=== PATIENT | female | born 1985 | race African-American/Black ===

== ENCOUNTER 2018-11-26 13:09 | Emergency (ER) | payer OTHER ==
[2018-11-26] MEDS ORDERED: SODIUM CHLORIDE 1,000 ML IV STA (13:19)
--- NOTE | 2018-11-26 13:19 | PDOC ---
Rapid Medical Evaluation Time Seen by Provider: 11/26/18 13:17 Medical Evaluation: Allergies Allergy/AdvReac Type Severity Reaction Status Date / Time No Known Allergies Allergy Verified 05/10/15 12:53 11/26/18 13:18 I have performed a brief in-person evaluation of this patient. The patient presents with a chief complaint of: dizziness x today with upper abdominal pain x2 days Pertinent physical exam findings: HR- 120, BP-150/102, epigastric tenderness. I have ordered the following: cardiac w/u The patient will proceed to the ED for further evaluation. Discharge Disposition - Diagnosis Dizziness - Referrals - Patient Instructions - Post Discharge Activity
[2018-11-26 13:20] VITALS: TEMP 98.8; BMI 29.2
--- NOTE | 2018-11-26 14:03 | PDOC ---
History of Present Illness - General Chief Complaint: Blood Pressure Problem Stated Complaint: HIGH BLOOD PRESSURE Time Seen by Provider: 11/26/18 13:17 - History of Present Illness Initial Comments: 11/26/18 16:38 33yo F w/no pertinent medical hx presents from home c/o 2 days of epigastric pain, nausea, and vomiting. 2 days ago pt began to experience epigastric pain, intermittent, gradual onset, cramping, nonradiating, unchanged by eating, slight improvement with mylanta and burping. Pt tried Mylanta 1tbsp every 4 hours for 2 days (6x/day) as well as Aleve once yesterday, with minimal temporary improvement. Last Mylanta a few hours ago. Pt was worried she had an infxn so she also tried Penicillin that came from [facility] 2 times, 500mg last night and 500mg this AM, with no improvement. Endorses nausea, decreased appetite (but still ate peanut butter and crackers today), NBNB emesis x1 last night, dysuria, urgency, increased frequency, dizziness, sweating, and increased BP from her usual 120/84 up to 130/110s. Denies hx of GERD, spicy or different foods, hx of similar sx, recent travel, sick contacts, CP, SOB, D/C, blood in stool, vaginal bleeding or discharge, numbness/tingling, weakness. Past History - Past Medical History Allergies/Adverse Reactions: Allergies Allergy/AdvReac Type Severity Reaction Status Date / Time No Known Allergies Allergy Verified 11/26/18 13:20 Home Medications: Ambulatory Orders Fluconazole [Diflucan -] 150 mg PO ONCE #1 tablet 05/10/15 Naproxen [EC-Naprosyn] 500 mg PO BID PRN #14 tablet.ec 05/10/15 Nitrofurantoin Monohyd/M-Cryst [Macrobid -] 100 mg PO BID #14 capsule 05/10/15 COPD: No - Suicide/Smoking/Psychosocial Hx Smoking Status: No Smoking History: Never smoked Have you smoked in the past 12 months: No Number of Cigarettes Smoked Daily: 0 Information on smoking cessation initiated: No Hx Alcohol Use: No Drug/Substance Use Hx: No Review of Systems - Review of Systems Comments:: 11/26/18 18:43 Constitutional: Negative for chills, fever, fatigue. HENT: Negative for sore throat, rhinorrhea, congestion. Eyes: Negative for visual disturbance. Respiratory: Negative for shortness of breath, cough, and wheezing. Cardiovascular: Negative for chest pain, palpitations, and leg swelling. Gastrointestinal: Positive for epigastric pain, nausea, and vomiting. Negative for blood in stool, constipation, diarrhea. Genitourinary: Positive for dysuria, frequency, urgency. Negative for vaginal discharge, vaginal odor, flank pain, and hematuria. Musculoskeletal: Negative for myalgias, back pain, and neck pain. Skin: Negative for rash. Neurological: Positive for dizziness. Negative for light-headedness, syncope, weakness, numbness and headaches. Psychiatric/Behavioral: Negative for behavioral problems and confusion. *Physical Exam - Vital Signs Last Vital Signs Temp Pulse Resp BP Pulse Ox 98.8 F 124 H 19 150/102 H 100 11/26/18 13:18 11/26/18 13:18 11/26/18 13:18 11/26/18 13:18 11/26/18 13:18 - Physical Exam Comments: 11/26/18 18:45 Gen: Alert, NAD, comfortable-appearing, sighs with exhalation HEENT: PERRL, EOMI, MMM, NCAT. No conjunctival pallor. Sclera are non-icteric. Oropharynx is clear. CV: Regular rate and rhythm. No murmurs, rubs, or gallops. PULM: No resp distress. CTAB, no wheezes, rales, or rhonchi. ABD: TTP epigastric, soft, ND, no rebound tenderness or guarding, no CVA tenderness. BACK: No TTP of c/t/l-spine. No step-offs or deformities. MSK: No bony deformities. 2+ pulses in all extremities. NEURO: AAOx3. PERRL. No gross CN deficits. Strength and sensation grossly intact throughout. EXTREMITIES: No cyanosis. No clubbing. No edema. No calf tenderness. PSYCH: Normal mood and thought pattern. SKIN: Warm and dry. Normal capillary refill. No rashes. No jaundice. Heart Score/ECG Review - ECG Impressions Comment:: 11/26/18 18:46 Sinus tachycardia, 111bpm, normal axis, no KITTY/TWI ED Treatment Course - LABORATORY CBC & Chemistry Diagram: 11/26/18 13:50 11/26/18 13:50 Medical Decision Making - Medical Decision Making 11/26/18 16:55 33yo F w/no pertinent medical hx presents from home c/o 2 days of epigastric pain, nausea, vomiting, and dysuria. Localized epigastric pain and improvement with Mylanta makes GERD most likely - tx with GI cocktail, IVF, and reassess. Other GI etiologies such as pancreatitis and cholecystitis less likely due to location of pain, but also consider and r/o with labs. Very low concern for ACS/ VT, low HEART score, r/o with EKG and trop x1. Lung pathology such as PNA also unlikely - r/o with CXR. Urinary sx concerning for UTI or STI, less likely renal stones - assess with UA/UC and STI tests. Denies hx of GERD, spicy or different foods, hx of similar sx, recent travel, sick contacts, CP, SOB, D/C, blood in stool, vaginal bleeding or discharge, numbness/tingling, weakness. -EKG -CBC, CMP, Cardiac profile, Lipase, Mg, beta-hCG, PT/INR, UA/UC -CXR -1L IVF -Pepcid, Maalox, Zofran -Dispo: pending workup 11/26/18 16:56 Pain improved s/p IVF, pepcid, and maalox. Still c/o urinary frequency and dysuria. Labs reviewed. CXR negative for acute pathology. WBC 8.0, no concerning values on CBC, CMP, lipase, cardiac profile. HCG neg. EKG reviewed. 11/26/18 17:25 Pt states she feels much better and the pain went away. No TTP epigastric or abdominal. Urine negative. Pending STI tests. Informed that would be called with results of STI tests. Set up call for Friday. 11/26/18 17:51 HR 72bpm. Vitals reviewed. Will dc home with supportive treatment. Return precautions given. Pt. understands all dc instructions and all questions were answered. *DC/Admit/Observation/Transfer Diagnosis at time of Disposition: Epigastric abdominal pain - Discharge Dispostion Disposition: HOME Condition at time of disposition: Improved Decision to Admit order: No - Referrals Referrals: [facility] [place] [Provider Group] Chato Medeiros MD [Staff Physician] - - Patient Instructions Printed Discharge Instructions: DI for Gastroesophageal Reflux Disease (GERD) Additional Instructions: You have been seen in the Emergency Department for abdominal pain and increased urination. Your physical exam and labs show no signs concerning for an emergent condition. Your urine shows no signs of urinary infection. Your blood pressure, heart rate, and pain improved with hydration and acid reflux medications. You most likely have acid reflux. At this time, it's most important to stay hydrated. Take Maalox and Pepcid (over the counter medications) as needed for your reflux - take as directed on bottles. You can also take Tylenol for pain - use as directed on bottle (do not exceed 4g per day). Avoid NSAIDs including ibuprofen, advil, motrin, and aleve. Your STD tests will take a few days to result. You will receive a call with any abnormal results. We have given you referrals for a primary care doctor and a vortex operator ( GI doctor) Dr. Medeiros. Call them tomorrow and set up appointments for follow-up in the next week. Return to the ED immediately if you experience pain not controlled by over the counter medications, dizziness, blood in stool, severe vomiting, or any other new or worsening symptom. - Post Discharge Activity
[2018-11-26 14:30] LABS: BASO % 0.5 % (0-2.0); EOS % 0.1 % (0-4.5); HEMATOCRIT 34.8 % (32.4-45.2); HEMOGLOBIN 11.7 GM/dL (10.7-15.3); LYMPH % 18.6 % (8-40); MCH 29.3 pg (25.7-33.7); MCHC 33.6 g/dl (32.0-36.0); MEAN CELL VOLUME 87.2 fl (80-96); MONO % 4.1 % (3.8-10.2); NEUT % 76.7 % (42.8-82.8); PLATELET COUNT 221 K/MM3 (134-434); RBC 3.99 M/mm3 (3.60-5.2); RDW 12.5 % (11.6-15.6)
[2018-11-26 14:40] LABS: INR 1.21 (0.83-1.09); PROTHROMBIN TIME (PATIENT) 14.3 SEC (9.7-13.0)
[2018-11-26] MEDS ORDERED: FAMOTIDINE 20 MG/50 ML IVPB 20 MG/50 ML MG IVPB ONE ×2 (14:51→15:19)
[2018-11-26] MEDS ORDERED: MAG HYDROX/AL HYDROX/SIMETH 30 ML UNIT-DOSE CUP PO ONE (14:52)
[2018-11-26 15:03] LABS: ALBUMIN 3.7 g/dl (3.4-5.0); ALK PHOS 61 U/L (45-117); ANION GAP 6 MMOL/L (8-16); BILIRUBIN,TOTAL 0.3 mg/dL (0.2-1); BLOOD UREA NITROGEN 28.4 mg/dL (7-18); CALCIUM 9.1 mg/dL (8.5-10.1); CHLORIDE 108 mmol/L (98-107); CO2 24 mmol/L (21-32); CREATININE 0.8 mg/dL (0.55-1.3); GLUCOSE,RANDOM 124 mg/dL (74-106); LIPASE 191 U/L (73-393); MAGNESIUM 2.1 mg/dL (1.8-2.4); POTASSIUM 4.5 mmol/L (3.5-5.1); SGOT/AST 9 U/L (15-37); SGPT/ALT 23 U/L (13-61); SODIUM 138 mmol/L (136-145); TOT PROT 7.8 g/dl (6.4-8.2)
[2018-11-26] MEDS ORDERED: MAG HYDROX/AL HYDROX/SIMETH 30 ML UNIT-DOSE CUP ONE ×2 (15:05→15:19)
[2018-11-26] MEDS ORDERED: ONDANSETRON 4 MG TABLET PO PRN (16:56)
--- NOTE | 2018-11-26 17:01 | EKG ---
Test Reason : Blood Pressure : / mmHG Vent. Rate : 111 BPM Atrial Rate : 111 BPM P-R Int : 128 ms QRS Dur : 066 ms QT Int : 322 ms P-R-T Axes : 057 033 031 degrees QTc Int : 437 ms SINUS TACHYCARDIA OTHERWISE NORMAL ECG NO PREVIOUS ECGS AVAILABLE Confirmed by DEVORA WEST MD ([id number]) on 11/26/2018 5:01:36 PM Referred By: Confirmed By:DEVORA WEST MD
[2018-11-26 17:03] LABS: URINE APPEARANCE CLEAR; URINE BILIRUBIN NEGATIVE (NEGATIVE); URINE COLOR YELLOW; URINE GLUCOSE (UA) NEGATIVE (NEGATIVE); URINE KETONE NEGATIVE (NEGATIVE); URINE LEUK ESTERASE NEGATIVE (NEGATIVE); URINE NITRITE NEGATIVE (NEGATIVE); URINE PROTEIN NEGATIVE (NEGATIVE); URINE UROBILINOGEN 0.2 mg/dL (0.2-1.0)
[2018-11-26 17:32] VITALS: BP 134/69; PULSE 98
--- NOTE | 2018-11-26 18:18 | PDOC ---
Documentation entered by Garry Gonzalez SCRIBE, acting as scribe for Juan Kilgore MD. Juan Kilgore MD: This documentation has been prepared by the Lisa ibarra Elijah, SCRIBE, under my direction and personally reviewed by me in its entirety. I confirm that the documentation accurately reflects all work, treatment, procedures, and medical decision making performed by me. Attending Attestation - Resident Resident Name: Holley Coffman - ED Attending Attestation I have performed the following: I have examined & evaluated the patient, The case was reviewed & discussed with the resident, I agree w/resident's findings & plan, Exceptions are as noted - HPI HPI: 11/26/18 18:04 33yo F with no significant PMH presents to the ED with 2 days epigastric pain a/ w nausea and NBNB emesis x 1 last night. Reports pain is intermittent and crampy in nature and improves with burping and mylanta. She also reports trying aleve and motrin which she states makes the pain worse. Denies dark or bloody stools. Reports her appetite has been poor due to the nausea. States the pain feels like acid stick in her epigastric area. Denies hx similar sxs. Denies CP, SOB, fevers, cough, N/V/D, abd pain, LE edema , headache, dizziness, focal weakness/numbness. - Physicial Exam PE: 11/26/18 18:09 GENERAL: Awake, alert, and fully oriented, in no acute distress. Well appearing on the phone HEAD: No signs of trauma EYES: PERRLA, EOMI, sclera anicteric, conjunctiva clear ENT: Nares patent, oropharynx clear without exudates. Moist mucosa NECK: Normal ROM, supple, no lymphadenopathy, JVD, or masses LUNGS: Breath sounds equal, clear to auscultation bilaterally. No wheezes, and no crackles HEART: Regular rate and rhythm, normal S1 and S2, no murmurs, rubs or gallops ABDOMEN: Soft, nontender, normoactive bowel sounds. No guarding, no rebound. No masses. No CvAT. EXTREMITIES: Normal range of motion, no edema. No clubbing or cyanosis. No cords , erythema, or tenderness BACK: No midline spinal tenderness in cervical/thoracic/lumbar region NEUROLOGICAL: Normal speech, cranial nerves intact, 5/5 strength in all 4 extremities, normal sensation to light touch in all 4 extremities, normal cerebellar exam, normal gait, normal tone SKIN: Warm, Dry, normal turgor, no rashes or lesions noted. - Medical Decision Making 11/26/18 18:12 33yo F, healthy, presents to the ED with 2 days of epigastric pain a/w nausea and vomiting Symptoms most consistent with gerd/gastritis, however bloodwork was checked to evaluate for pancreatitis, cardiac cause which was neg EKG non ischemic Pt states symptoms resolved with Maalox and pepcid. She is tolerating PO All results discussed with pt. She states her PMD left and she does not have one Will refer to primary care and GI Also encouraged pt to avoid NSAIDs as they are likely to exacerbate her symptoms Rpt vitals with improved BP and HR - initially she was hypertensive and tachycardic (pt was likely mildly dehydrated and states she was anxious when she came in) She expresses understanding of plan and she is clinically stable for DC home I discussed the physical exam findings, ancillary test results and final diagnoses with the patient. I answered all of the patient's questions. The patient was satisfied with the care received and felt comfortable with the discharge plan and treatment plan. The patient will call their primary care physician within 24 hours to arrange follow-up and will return to the Emergency Department with any new, persistent or worsening symptoms. Heart Score/ECG Review #1 11/26/18 18:15 EKG read and int by me: Sinus tachycardia, rate 105, normal axis and intervals, no KITTY or TWI
== END 2018-11-26 18:09 | disposition home or self-care (01) ==
LOC: JER 13:09
PROC: 3E0337Z Introduction of Electrolytic and Water Balance Substance into Peripheral Vein, Percutaneous Approach (ICD-10-PCS; principal; 2018-11-26)
PROC: 3E033GC Introduction of Other Therapeutic Substance into Peripheral Vein, Percutaneous Approach (ICD-10-PCS; 2018-11-26)
DX: R10.13 Epigastric pain (principal)
CPT/HCPCS: 36415; 71046-TC-FY; 80053; 81003; 82550; 83690; 83735; 84484; 84703; 85025; 85610; 86593; 87086; 87389; 87491; 87591; 93005; 93010; 99283-25; J7030